=== PATIENT | male | born 1980 | race African-American/Black ===

== ENCOUNTER 2021-04-12 20:35 | Emergency (ER) | payer OTHER ==
[~2021-04-12] VITALS: Ht 170.2 cm; Wt 63.5 kg
[2021-04-12 20:37] VITALS: BP 111/81
[2021-04-12] MEDS ORDERED: CEPHALEXIN500 MG PO (21:01)
== END 2021-04-12 21:15 | disposition home or self-care (01) ==
LOC: ER 20:35
DX: S61.214A Laceration without foreign body of right ring finger without damage to nail, initial encounter (principal); W31.89XA Contact with other specified machinery, initial encounter; Y93.89 Activity, other specified; Y92.69 Other specified industrial and construction area as the place of occurrence of the external cause; Y99.9 Unspecified external cause status